=== PATIENT | male | born 2000 | race African-American/Black ===

== ENCOUNTER 2023-11-21 09:50 | Inpatient (IN) | payer OTHER ==
[~2023-11-21] VITALS: Ht 172.7 cm; Wt 63.6 kg
[2023-11-21] MEDS ORDERED: IBUP-1114 PO (10:22)
[2023-11-21 10:33] LABS: HEMATOCRIT 52.6 % (42.0-52.0); HEMOGLOBIN 16.8 g/dl (13.5-17.5); MEAN CORPUSCULAR HEMOGLOBIN 26.8 pg (27.0-33.0); MEAN CORPUSCULAR HGB CONC 31.9 g/dl (32.0-36.5); PLATELET COUNT, AUTOMATED 305 10^3/uL (150-450); RED BLOOD COUNT 6.26 10^6/uL (4.30-6.10); WHITE BLOOD COUNT 5.2 10^3/uL (4.0-10.0)
[2023-11-21 10:55] LABS: AMPHETAMINES LEVEL URINE NEGATIVE (NEGATIVE); BARBITURATES URINE NEGATIVE (NEGATIVE); BENZODIAZEPINES URINE NEGATIVE (NEGATIVE); COCAINE METABOLITE URINE NEGATIVE (NEGATIVE); METHADONE URINE NEGATIVE (NEGATIVE); OPIATES URINE NEGATIVE (NEGATIVE); PHENCYCLIDINE URINE NEGATIVE (NEGATIVE)
[2023-11-21 10:56] LABS: CANNABINOIDS URINE NEGATIVE (NEGATIVE)
[2023-11-21 10:56] LABS: ETHYL ALCOHOL (ETHANOL) < 0.003 % (0.000-0.010)
[2023-11-21 10:58] LABS: ALBUMIN 4.6 G/DL (3.2-5.2); ALKALINE PHOSPHATASE 81 U/L (46-116); ALT/SGPT 41 U/L (7.0-40); AST/SGOT 23 U/L (<34); BILIRUBIN,DIRECT 0.2 MG/DL (<0.4); BILIRUBIN,TOTAL 0.5 MG/DL (0.3-1.2); BLOOD UREA NITROGEN 17 MG/DL (9-23); CALCIUM LEVEL 10.2 MG/DL (8.5-10.1); CARBON DIOXIDE LEVEL 31 MMOL/L (20-31); CHLORIDE LEVEL 104 MMOL/L (98-107); CREATININE FOR GFR 0.95 MG/DL (0.70-1.30); GLOMERULAR FILTRATION RATE > 60.0 (>60); GLUCOSE, FASTING 93 MG/DL (60-100); SALICYLATE LEVEL < 3.0 MG/DL (<30); SODIUM LEVEL 139 MMOL/L (136-145); TOTAL PROTEIN 7.8 G/DL (5.7-8.2)
[2023-11-21 11:05] LABS: THYROID STIMULATING HORMONE 1.327 uIU/ML (0.55-4.78)
[2023-11-21] MEDS ORDERED: MOM 30ML SUSPENSION UDC PO PRN (13:00)
[2023-11-21] MEDS ORDERED: MAALOX 30 ML SUSP *UDC PO PRN (13:00)
[2023-11-21] MEDS ORDERED: ACET-897 PO (13:17)
[2023-11-21] MEDS ORDERED: HOME MED LIST COMPLETE! XX SCH (13:20)
[2023-11-21] MEDS: IBUPROFEN 400MG TAB PO PRN (15:44)
[2023-11-21 17:35] VITALS: BP 137/75; TEMP 98.1; O2SAT 97
[2023-11-21 18:54] VITALS: BP 137/75
[2023-11-22 05:54] VITALS: BP 115/62; TEMP 97.1; O2SAT 98
[2023-11-22] MEDS ORDERED: LORazepam 2 MG TAB PO PRN (09:25)
[2023-11-22] MEDS: FOLIC ACID 1MG TAB PO SCH (10:11)
[2023-11-22] MEDS: MULTIVITAMINS/MINERALS THERAP 1 TAB PO SCH (10:11)
[2023-11-22] MEDS: THIAMINE 100 MG TAB PO SCH (10:11)
[2023-11-22] MEDS: SERTRALINE HCL 50 MG TAB PO SCH (12:39)
[2023-11-22 14:00] VITALS: BP 128/66
[2023-11-22 18:59] VITALS: BP 132/77; TEMP 98.1; O2SAT 97
[2023-11-22] MEDS: traZODone 50 MG TAB PO PRN (21:12)
[2023-11-23 06:42] VITALS: BP 124/58; TEMP 98.5; O2SAT 99
[2023-11-23 06:45] VITALS: BP 174/112
[2023-11-23 07:07] VITALS: BP 124/58
[2023-11-23 17:40] VITALS: BP 121/58; TEMP 97.3
[2023-11-23 20:00] VITALS: BP 152/90; O2SAT 98
[2023-11-24 06:29] VITALS: BP 127/58; TEMP 97.1; O2SAT 100
[2023-11-24] MEDS: hydrOXYzine 50 MG TAB PO PRN (10:08)
[2023-11-24] MEDS: ACETAMINOPHEN TAB 650MG DOSE (2X325MG) PO PRN (11:40)
[2023-11-24 18:53] VITALS: BP 139/91; TEMP 97.8; O2SAT 100
[2023-11-24] MEDS: diphenhydrAMINE 25MG CAP PO PRN (20:21)
[2023-11-24] MEDS: OLANZapine 5 MG TAB PO SCH (20:21)
[2023-11-25] MEDS ORDERED: THIAMINE 100 MG TAB As Ordered ONE (09:04)
[2023-11-25] MEDS ORDERED: FOLIC ACID 1MG TAB As Ordered ONE (09:04)
[2023-11-25] MEDS ORDERED: SERTRALINE HCL 50 MG TAB As Ordered ONE (09:04)
[2023-11-25] MEDS ORDERED: MULTIVITAMINS/MINERALS THERAP 1 TAB As Ordered ONE (09:04)
[2023-11-25 17:30] VITALS: BP 130/82; TEMP 97.9; O2SAT 100
[2023-11-26 06:23] VITALS: BP 105/53; TEMP 98.3; O2SAT 99
[2023-11-26 18:34] VITALS: BP 132/82; TEMP 98.7; O2SAT 98
[2023-11-27 06:23] VITALS: BP 113/60; TEMP 98; O2SAT 98
[2023-11-27 18:06] VITALS: BP 138/74; TEMP 97.6; O2SAT 98
[2023-11-27] MEDS: OLANZapine ORAL DISINTEGRATING TAB 5MG PO ONE (19:28)
[2023-11-28 06:15] VITALS: BP 125/58; TEMP 98.5; O2SAT 99
[2023-11-28 18:04] VITALS: BP 142/66; TEMP 98.1
[2023-11-29 06:35] VITALS: BP 121/75; TEMP 99.1; O2SAT 97
[2023-11-29] MEDS: SERTRALINE HCL 25 MG TABLET PO SCH (09:18)
[2023-11-29 18:24] VITALS: BP 131/68; TEMP 97.8
[2023-11-30 06:12] VITALS: BP 112/58; TEMP 98.9; O2SAT 98
[2023-11-30] MEDS ORDERED: TRAZ-252 PO (14:26)
[2023-11-30] MEDS ORDERED: OLAN1TAB16 PO (14:26)
[2023-11-30] MEDS ORDERED: SERT25TA21 PO (14:26)
[2023-11-30 17:39] VITALS: BP 143/73; TEMP 96.8; O2SAT 97
== END 2023-12-01 01:54 | disposition other institution (70) | DRG 885 ==
LOC: M ED 09:50 → M ED INP 12:59 → M PSY 17:31
PROVIDERS: ADMIT Student in an Organized Health Care Education/Training Program; ATTEND Student in an Organized Health Care Education/Training Program
DX: F32.3 Major depressive disorder, single episode, severe with psychotic features (principal); R45.851 Suicidal ideations; F17.290 Nicotine dependence, other tobacco product, uncomplicated; F10.10 Alcohol abuse, uncomplicated; Z71.41 Alcohol abuse counseling and surveillance of alcoholic; Z88.3 Allergy status to other anti-infective agents; Z71.6 Tobacco abuse counseling; Z56.4 Discord with boss and workmates

== ENCOUNTER 2024-01-20 17:02 | Inpatient (IN) | payer OTHER ==
[~2024-01-20] VITALS: Ht 172.7 cm; Wt 70.2 kg
[~2024-01-20 17:02] MED LIST: ACET-897 PO; IBUP-1114 PO; OLAN1TAB16 PO; SERT25TA21 PO; TRAZ-252 PO
[2024-01-20 18:12] LABS: HEMOGLOBIN 14.8 g/dl (13.5-17.5); MEAN CORPUSCULAR HEMOGLOBIN 27.5 pg (27.0-33.0); MEAN CORPUSCULAR HGB CONC 32.9 g/dl (32.0-36.5); MEAN CORPUSCULAR VOLUME 83.5 fl (80.0-96.0); PLATELET COUNT, AUTOMATED 254 10^3/uL (150-450); RED BLOOD COUNT 5.39 10^6/uL (4.30-6.10); WHITE BLOOD COUNT 5.9 10^3/uL (4.0-10.0)
[2024-01-20 18:36] LABS: ETHYL ALCOHOL (ETHANOL) < 0.003 % (0.000-0.010)
[2024-01-20 18:38] LABS: AMPHETAMINES LEVEL URINE NEGATIVE (NEGATIVE); BARBITURATES URINE NEGATIVE (NEGATIVE); CANNABINOIDS URINE NEGATIVE (NEGATIVE); COCAINE METABOLITE URINE NEGATIVE (NEGATIVE); METHADONE URINE NEGATIVE (NEGATIVE); OPIATES URINE NEGATIVE (NEGATIVE); PHENCYCLIDINE URINE NEGATIVE (NEGATIVE); SALICYLATE LEVEL < 3.0 MG/DL (<30)
[2024-01-20 18:39] LABS: ALBUMIN 4.2 G/DL (3.2-5.2); ALKALINE PHOSPHATASE 76 U/L (46-116); ALT/SGPT 26 U/L (7.0-40); AST/SGOT 35 U/L (<34); BENZODIAZEPINES URINE NEGATIVE (NEGATIVE); BILIRUBIN,DIRECT 0.2 MG/DL (<0.4); BILIRUBIN,TOTAL 0.7 MG/DL (0.3-1.2); BLOOD UREA NITROGEN 17 MG/DL (9-23); CALCIUM LEVEL 9.7 MG/DL (8.5-10.1); CARBON DIOXIDE LEVEL 27 MMOL/L (20-31); CHLORIDE LEVEL 107 MMOL/L (98-107); CREATININE FOR GFR 1.11 MG/DL (0.70-1.30); GLOMERULAR FILTRATION RATE > 60.0 (>60); GLUCOSE, FASTING 84 MG/DL (60-100); POTASSIUM SERUM 4.4 MMOL/L (3.5-5.1); SODIUM LEVEL 139 MMOL/L (136-145); TOTAL PROTEIN 7.3 G/DL (5.7-8.2)
[2024-01-20 18:42] LABS: THYROID STIMULATING HORMONE 0.883 uIU/ML (0.55-4.78)
[2024-01-20] MEDS ORDERED: QUET50TA4 PO (18:48)
[2024-01-20] MEDS ORDERED: ARIP1TAB6 PO (18:48)
[2024-01-20] MEDS ORDERED: CELE1CAP99 PO (18:48)
[2024-01-20] MEDS ORDERED: WELLTAB38 PO (18:48)
[2024-01-20] MEDS ORDERED: HOME MED LIST COMPLETE! XX SCH (18:55)
[2024-01-20] MEDS: QUEtiapine FUMARATE 50MG TAB PO SCH (20:11)
[2024-01-20] MEDS ORDERED: MOM 30ML SUSPENSION UDC PO PRN (20:15)
[2024-01-20] MEDS ORDERED: traZODone 50 MG TAB PO PRN (20:15)
[2024-01-20] MEDS ORDERED: MAALOX 30 ML SUSP *UDC PO PRN (20:15)
[2024-01-20] MEDS: CelecoXIB (CeleBREX) 100 MG CAP PO SCH (21:00)
[2024-01-20 22:17] VITALS: BP 115/68; TEMP 97.8; O2SAT 100
[2024-01-21 06:19] VITALS: BP 97/53; TEMP 98.3; O2SAT 99
[2024-01-21] MEDS ORDERED: buPROPion **XL** TABLET 150MG (WELLBUTRIN XL) PO SCH (09:00)
[2024-01-21] MEDS: IBUPROFEN 400MG TAB PO PRN (10:30)
[2024-01-21] MEDS: buPROPion **XL** TABLET 150MG (WELLBUTRIN XL) PO SCH (11:50)
[2024-01-21] MEDS ORDERED: ALBUTEROL 90 MCG/ACT 8GM HFA INHALER INH PRN (12:05)
[2024-01-21] MEDS: NICOTINE 21MG/24HR 1 EA TRANSDERMAL TD SCH (14:18)
[2024-01-21 16:06] VITALS: BP 135/64; TEMP 98; O2SAT 99
[2024-01-21] MEDS: ARIPiprazole 10 MG TAB PO SCH (17:13)
[2024-01-21] MEDS: QUEtiapine FUMARATE 200 MG TAB PO SCH (20:12)
[2024-01-21] MEDS: diphenhydrAMINE 25MG CAP PO PRN (20:12)
[2024-01-22 06:14] VITALS: BP 98/51; TEMP 98; O2SAT 100
[2024-01-22 15:53] VITALS: BP 121/60; TEMP 97.4; O2SAT 100
[2024-01-23 06:10] VITALS: BP 120/58; TEMP 97.7; O2SAT 99
[2024-01-23 14:32] VITALS: BP 121/55; TEMP 97.8; O2SAT 100
[2024-01-24 06:12] VITALS: BP 120/59; TEMP 96.9; O2SAT 99
[2024-01-24 16:58] VITALS: BP 123/59; TEMP 97.3; O2SAT 100
[2024-01-25 06:16] VITALS: BP 152/66; TEMP 97.1; O2SAT 98
[2024-01-25] MEDS: ACETAMINOPHEN TAB 650MG DOSE (2X325MG) PO PRN (09:37)
[2024-01-25 15:48] VITALS: BP 127/60; TEMP 98.2; O2SAT 97
[2024-01-26 06:33] VITALS: BP 99/52; TEMP 98.3; O2SAT 97
[2024-01-26] MEDS ORDERED: ABIL10TA9 PO (09:03)
[2024-01-26] MEDS ORDERED: QUET200T2 PO (09:03)
[2024-01-27] MEDS ORDERED: WELLTAB40 PO (07:53)
[2024-01-27] MEDS ORDERED: BUPR150T12 PO (13:58)
== END 2024-01-26 11:54 | disposition home or self-care (01) | DRG 885 ==
LOC: M ED 17:02 → M ED INP 20:14 → M PSY 21:43
PROVIDERS: ADMIT Psychiatry & Neurology Psychiatry; ATTEND Psychiatry & Neurology Psychiatry
DX: F33.3 Major depressive disorder, recurrent, severe with psychotic symptoms (principal); R45.851 Suicidal ideations; Z81.8 Family history of other mental and behavioral disorders; Z79.899 Other long term (current) drug therapy; Z56.6 Other physical and mental strain related to work; Z56.4 Discord with boss and workmates; J45.909 Unspecified asthma, uncomplicated

== ENCOUNTER → 2024-05-31 | Outpatient (CLI) | payer OTHER ==
[~2024-05-31] MED LIST changes: +ABIL10TA9 PO; +ARIP1TAB6 PO; +BUPR150T12 PO; +CELE1CAP99 PO; +QUET200T2 PO; +QUET50TA4 PO; +WELLTAB38 PO; +WELLTAB40 PO
== END ==
LOC: M SOG 07:50
PROVIDERS: ATTEND Physician Assistant
DX: M25.531 Pain in right wrist (principal)

== ENCOUNTER 2024-08-31 09:58 | Emergency (ER) | payer OTHER ==
[~2024-08-31] VITALS: Ht 172.7 cm; Wt 66.8 kg
[2024-08-31 11:54] LABS: BASO % 0.6 % (0.0-1.0); EOS # 0.1 10^3/uL (0.0-0.5); EOS % 1.5 % (0.0-3.0); HEMATOCRIT 49.9 % (42.0-52.0); HEMOGLOBIN 16.2 g/dl (13.5-17.5); LYMPH # 1.5 10^3/uL (1.5-5.0); LYMPH % 27.5 % (24.0-44.0); MEAN CORPUSCULAR HEMOGLOBIN 27.6 pg (27.0-33.0); MEAN CORPUSCULAR HGB CONC 32.5 g/dl (32.0-36.5); MEAN CORPUSCULAR VOLUME 84.9 fl (80.0-96.0); MONO # 0.4 10^3/uL (0.0-0.8); NEUTROPHILS # 3.4 10^3/uL (1.5-8.5); NEUTROPHILS % 63.2 % (36.0-66.0); PLATELET COUNT, AUTOMATED 248 10^3/uL (150-450); RED BLOOD COUNT 5.88 10^6/uL (4.30-6.10); WHITE BLOOD COUNT 5.3 10^3/uL (4.0-10.0)
[2024-08-31] MEDS: PANTOPRAZOLE 40MG VIAL IV ONE (12:00)
[2024-08-31] MEDS: FAMOTIDINE 20MG/2ML VIAL IVP ONE (12:00)
[2024-08-31] MEDS: KETOROLAC 30 MG/ML 1ML VIAL IV ONE (12:01)
[2024-08-31 12:33] LABS: ALBUMIN 4.6 G/DL (3.2-5.2); BILIRUBIN,DIRECT 0.3 MG/DL (<0.4); BILIRUBIN,TOTAL 0.7 MG/DL (0.3-1.2); CALCIUM LEVEL 9.5 MG/DL (8.5-10.1); CREATININE FOR GFR 1.18 MG/DL (0.70-1.30); GLOMERULAR FILTRATION RATE 89.5 (>60); POTASSIUM SERUM 4.1 MMOL/L (3.5-5.1); TOTAL PROTEIN 7.5 G/DL (5.7-8.2)
[2024-08-31 12:58] VITALS: O2SAT 99
[2024-08-31 13:00] VITALS: BP 105/55; TEMP 97.8
[2024-08-31] MEDS ORDERED: OMEP-173 PO (13:05)
== END 2024-08-31 13:32 | disposition home or self-care (01) ==
LOC: M ED 09:58
DX: R10.13 Epigastric pain (principal); F41.9 Anxiety disorder, unspecified; F32.A Depression, unspecified; F17.200 Nicotine dependence, unspecified, uncomplicated; Z79.899 Other long term (current) drug therapy
CPT/HCPCS: 36415; 76705; 80048; 80076; 83690; 85025; 96374; 96375; 99284; J1308; J1885; J2470